=== PATIENT | female | born 1945 | race Asian ===

== ENCOUNTER 2021-01-07 08:13 | Day surgery (SDC) | payer OTHER, BC ==
[2021-01-04 11:25] VITALS: BMI 21.2
[2021-01-07 08:32] VITALS: TEMP 98.3
[2021-01-07] MEDS ORDERED: LIDOCAINE HCL/PF 2% SDV 5ML VIAL ONE (10:41)
[2021-01-07] MEDS ORDERED: PROPOFOL 20 ML ONE ×3 (10:41)
[2021-01-07 11:55] VITALS: BP 120/56; PULSE 62
== END 2021-01-07 11:56 | disposition home or self-care (01) ==
LOC: FASU-ENDO 08:13 → EDSEX 10:30 → MERGE 10:30 → FASU-ENDO 11:56
PROVIDERS: ATTEND Internal Medicine Gastroenterology
PROC: 0DBK8ZX Excision of Ascending Colon, Via Natural or Artificial Opening Endoscopic, Diagnostic (ICD-10-PCS; principal; 2021-01-07 10:46)
DX: Z12.11 Encounter for screening for malignant neoplasm of colon (principal); D12.2 Benign neoplasm of ascending colon; Z86.010 Personal history of colon polyps
CPT/HCPCS: 82962; 88305-TC

== ENCOUNTER 2022-10-21 09:39 | Emergency (ER) | payer OTHER, BC ==
[2022-10-21 10:01] VITALS: BP 128/61; PULSE 53; RESP 18; TEMP 97.5; BMI 19.5
[2022-10-21 11:04] LABS: HEMATOCRIT 38.8 % (32.4-45.2); HEMOGLOBIN 13.3 G/dL (10.7-15.3); MCH 30.2 pg (25.7-33.7); MCHC 34.3 g/dl (32.0-36.0); MEAN PLT VOLUME 9.5 fl (7.5-11.1); RBC 4.41 10^6/uL (3.60-5.2); RDW 13.9 % (11.6-15.6); WHITE BLOOD COUNT 9.5 10^3/uL (4.0-10.8)
[2022-10-21 11:18] LABS: PLATELET ESTIMATE ADEQUATE
[2022-10-21 11:24] LABS: INR 1.05 (0.83-1.09); PROTHROMBIN TIME (PATIENT) 12.1 SEC (9.7-13.0)
[2022-10-21 11:27] LABS: ACTIVATED PTT 31.6 SECONDS (25.2-36.5)
[2022-10-21 13:04] LABS: CALCIUM 9.2 mg/dl (8.5-10); CREATININE 0.6 mg/dl (0.55-1.3); TOT PROT 6.7 g/dl (6.4-8.2)
== END 2022-10-21 12:50 | disposition home or self-care (01) ==
LOC: FER 09:39
DX: S40.011A Contusion of right shoulder, initial encounter (principal); M62.81 Muscle weakness (generalized); W01.0XXA Fall on same level from slipping, tripping and stumbling without subsequent striking against object, initial encounter
CPT/HCPCS: 36415; 70450-TC; 71046-TC-FY; 73030-TC-RT-FY; 73060-TC-RT-FY; 80053; 80061; 81003; 82550; 83036; 84484; 85025; 85610; 85730; 86850; 86900; 86901; 93005; 99285-25; C9803-CS; U0003; U0005